=== PATIENT | male | born 1960 | race Caucasian/White ===

== ENCOUNTER 2020-08-23 14:41 | Outpatient (CLI) | payer BC, SELFPAY ==
--- NOTE | ~2020-08-23 | XR_ITS ---
EXAMINATION: XR chest 2V EXAM DATE: 08/23/2020 14:57 INDICATION: R05 - Cough . TECHNIQUE: Frontal and lateral projections of the chest obtained and reviewed. Comparison is made to prior examination from 07/13/2016. FINDINGS: Small linear basilar regions of scarring. The lungs are otherwise clear. There are no ple ural effusions. The cardiomediastinal silhouette is within normal limits. There is no pneumothorax suspected. The bones and soft tissues are unremarkable. IMPRESSION: Small linear basilar regions of scarring. Reviewed, dictated and finalized at location B. [facility]
[2020-08-23 15:10] LABS: Basophils Percent Auto 0.7 % (0.2-1.2); Eosinophils Absolute Auto 0.1 K/mm3 (0-0.3); Eosinophils Percent Auto 1.7 % (0-4.4); Hematocrit 41.3 % (42.0-52.0); Hemoglobin 13.5 g/dL (14.0-18.0); Immature Granulocyte Absolute 0.03 K/mm3 (0.00-0.031); Immature Granulocyte Percent A 0.6 % (0-0.5); Lymphocytes Absolute Auto 1.09 K/mm3 (0.9-3.2); Lymphocytes Percent Auto 20.4 % (18.3-44.2); Mean Corpuscular HGB Conc 32.7 g/dl (32-36); Mean Corpuscular Volume 88.6 fl (80-100); Mean Platelet Volume 9.7 fl (7.4-10.4); Monocytes Absolute Auto 0.4 K/mm3 (0.1-0.6); Neutrophils Absolute Auto 3.7 K/mm3 (1.3-6.7); Neutrophils Percent Auto 68.6 % (45.5-73.1); Platelet Count Result 244 k/mm3 (150-375); Red Blood Count 4.66 M/mm3 (4.6-6.20); Red Cell Distribution Width 12.7 % (11.5-14.5); White Blood Count 5.4 K/mm3 (4.5-10.0)
[2020-08-23 15:23] LABS: Anion Gap 6 mmol/L (8-16); Blood Urea Nitrogen 15 mg/dL (9-20); Calcium 8.7 mg/dL (8.4-10.2); Carbon Dioxide 30 mmol/L (22-30); Chloride 105 mmol/L (98-107); Estimated Glomerular Filt Rate > 60; Glucose 100 mg/dL (75-110); Magnesium 1.7 mg/dL (1.6-2.3); Potassium 4.3 mmol/L (3.4-5.0); Sodium 141 mmol/L (137-145)
[2020-08-23 15:32] LABS: NT Pro B Type Natriuretic Pept 77 PG/ML (5-100)
== END 2020-08-23 14:42 | disposition home or self-care (01) ==
PROVIDERS: PCP Family Medicine; Visit Provider Nurse Practitioner Family
DX: M62.838 Other muscle spasm (principal); R05 Cough; R06.02 Shortness of breath; R91.8 Other nonspecific abnormal finding of lung field
CPT/HCPCS: 36415; 71046; 80048; 83735; 83880; 85025

== ENCOUNTER 2021-01-08 18:00 | Outpatient (RCR) | payer BC, SELFPAY ==
[2020-10-04 08:40] VITALS: PULSE 78
--- NOTE | 2020-11-11 14:07 | PCCPR ---
Absent-has to work overtime.
== END 2021-01-08 19:30 | disposition home or self-care (01) ==
LOC: ANHCPREHAB 18:00
PROVIDERS: PCP Family Medicine; Visit Provider Internal Medicine Cardiovascular Disease
DX: Z95.5 Presence of coronary angioplasty implant and graft (principal)
CPT/HCPCS: 93798

== ENCOUNTER 2022-04-20 01:24 | Day surgery (SDC) | payer BC, SELFPAY ==
[2022-03-20 14:42] VITALS: BMI 28.5
--- NOTE | 2022-04-20 06:49 | PM.HPGS ---
History of Present Illness History of Present Illness Consent: Risks, benefits, and alternatives have been discussed and questions answered. Patient agrees to proceed with procedure. Chief complaint: neoplasm screening Narrative: Wesley Rivera is a 61 year old male Referred for colon cancer screening. Review of Systems Review of Systems: All systems reviewed & are unremarkable except as noted in HPI and below PMFSH Past Medical History Medical History Bilateral shoulder pain BMI 28.0-28.9,adult BMI 29.0-29.9,adult CAD (coronary artery disease) Combined arterial insufficiency and corporo-venous occlusive erectile dysfunction Cough Dietary counseling and surveillance (08/14/15) Encounter for screening for lipoid disorders Encounter for screening for malignant neoplasm of prostate Encounter for screening for other suspected endocrine disorder Flu vaccine need Herpes zoster without complication Hypertension Low testosterone Mixed hyperlipidemia Muscle weakness Myalgia Numbness Pain in unspecified knee Pain in unspecified shoulder Pre-op exam Sprain of medial collateral ligament of right knee, subsequent encounter Superficial foreign body of scalp, sequela Surgical History Surgical History H/O knee surgery H/O shoulder surgery Stented coronary artery Family History Family History Father Hypertension Family history of liver disease Mother Heart disease History of quadruple bypass Sibling Breast cancer Social History Social History Smoking status: Former smoker Second hand tobacco smoke exposure: Yes Alcohol intake: never Substance use: never Substance use type: does not use Living arrangements: with family 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[employer] Gender identity (if verbalized by the patient): Male Spiritual care concerns: No Meds Home Medications and Allergies Home Medications Medication Instructions Recorded Confirmed Type clopidogrel 75 mg tablet 75 mg PO DAILY 09/30/20 04/20/22 History aspirin 81 mg tablet 81 mg PO DAILY 10/04/20 04/20/22 History evolocumab 140 mg/mL subcutaneous 140 mg subcut [id number] 12/23/20 04/20/22 History pen injector (Sina Santos) Allergies Allergy/AdvReac Type Severity Reaction Status Date / Time Uswitdv-PRS-HhU Reductase AdvReac Severe Nightmare Verified 04/20/22 09:07 Inhibitor [Kaoognw-Pvs-Lnc Reductase Inhibitor] Exam Const: General: alert Orientation/consciousness: patient oriented x3 Resp: Auscultation: clear to auscultation bilaterally Cardio: Rhythm: regular rhythm GI: GI Palp: Yes Soft to palpation and No Tenderness to palpation present (GI) Neuro: General: patient oriented x3 Assessment and Plan Assessment and plan (1) Screening for malignant neoplasm of colon: Code(s): Z12.11 - Encounter for screening for malignant neoplasm of colon Status: Acute Assessment and Plan: Colonoscopy with possible biopsy or polypectomy or cautery or injection of substances.
--- NOTE | 2022-04-20 07:50 | WPDANESEPPF ---
Anes - Initial Pre Proc Eval Procedure: Operation Date: 04/20/22 10:00 Proposed Procedures p Screening Colonoscopy - Adrian Kinsey MD Date/Time: 04/20/22 07:50 Surgeon: Adrian Kinsey MD Pre Op Diagnosis: neoplasm screening Patient Data Age: 61 Gender: M Height: 1.83 m Weight: 95.5 kg Allergies Allergy/AdvReac Type Severity Reaction Status Date / Time Mevcyih-TCR-OkX Reductase AdvReac Severe Nightmare Verified 04/20/22 09:07 Inhibitor [Jqqwiph-Whn-Ivd Reductase Inhibitor] Home Medications Medication Instructions Recorded Confirmed Type clopidogrel 75 mg tablet 75 mg PO DAILY 09/30/20 04/20/22 History aspirin 81 mg tablet 81 mg PO DAILY 10/04/20 04/20/22 History evolocumab 140 mg/mL subcutaneous 140 mg subcut [id number] 12/23/20 04/20/22 History pen injector (Repatha SureClick) Patient hx anesthesia problems: none Family hx anesthesia problems: none Results Review: All pre-operative results and documents have been reviewed as part of the pre-operative evaluation. [facility] Past Medical History Medical History Bilateral shoulder pain BMI 28.0-28.9,adult BMI 29.0-29.9,adult CAD (coronary artery disease) Combined arterial insufficiency and corporo-venous occlusive erectile dysfunction Cough Dietary counseling and surveillance (08/14/15) Encounter for screening for lipoid disorders Encounter for screening for malignant neoplasm of prostate Encounter for screening for other suspected endocrine disorder Flu vaccine need Herpes zoster without complication Hypertension Low testosterone Mixed hyperlipidemia Muscle weakness Myalgia Numbness Pain in unspecified knee Pain in unspecified shoulder Pre-op exam Sprain of medial collateral ligament of right knee, subsequent encounter Superficial foreign body of scalp, sequela Surgical History Surgical History H/O knee surgery H/O shoulder surgery Stented coronary artery Family History Family History Father Hypertension Family history of liver disease Mother Heart disease History of quadruple bypass Sibling Breast cancer Social History Social History Smoking status: Former smoker Second hand tobacco smoke exposure: Yes Alcohol intake: never Substance use: never Substance use type: does not use Living arrangements: with family Additional occupation/education comments: [employer] Gender identity (if verbalized by the patient): Male Spiritual care concerns: No Anes - Eval Final PreProcedure Day of Procedure 04/20/22 07:50 Patient weight: overweight Heart: regular rate and rhythm Lungs: clear to auscultation Airway: Mallampati scale class II Neurological: alert and oriented Last oral intake: >/= 8 hours ASA classification: III Emergent: no Anesthetic plan: proceed Anesthesia type and monitoring: general GIVS and standard monitoring Results Review: All pre-operative results and documents have been reviewed as part of the pre-operative evaluation. Informed Consent: The patient's anesthetic plan and its attendant risks and benefits were discussed with the patient/family/POA. Questions were solicited and answers provided to the satisfaction of the patient/family/POA.
[2022-04-20 09:09] VITALS: BP 114/76; PULSE 103; RESP 17; TEMP 36.6; O2SAT 98; BMI 28.4
[2022-04-20] MEDS: LACTATED RINGERS 1,000 ML 150 ML IV CONT (09:22)
[2022-04-20 10:21] VITALS: BP 98/63; PULSE 90; RESP 17; O2SAT 97
[2022-04-20 10:31] VITALS: BP 98/61; PULSE 80; RESP 17; O2SAT 99
[2022-04-20 10:37] VITALS: BP 100/54; PULSE 76; RESP 17; O2SAT 99
== END 2022-04-20 10:52 | disposition home or self-care (01) ==
PROVIDERS: PCP Family Medicine; Visit Provider Internal Medicine Gastroenterology
PROC: 0DJD8ZZ Inspection of Lower Intestinal Tract, Via Natural or Artificial Opening Endoscopic (ICD-10-PCS; CPT 45378; principal; 2022-04-20 10:00)
DX: Z12.11 Encounter for screening for malignant neoplasm of colon (principal); D12.5 Benign neoplasm of sigmoid colon; K63.5 Polyp of colon; Z79.82 Long term (current) use of aspirin; I25.10 Atherosclerotic heart disease of native coronary artery without angina pectoris; I10 Essential (primary) hypertension; E78.2 Mixed hyperlipidemia; M62.81 Muscle weakness (generalized); Z87.891 Personal history of nicotine dependence
CPT/HCPCS: 45378; 88305; J2704; J7120

== ENCOUNTER 2022-11-03 09:56 | Outpatient (CLI) | payer BC, SELFPAY ==
--- NOTE | 2022-11-03 10:54 | ECG_ITS ---
Measurements Intervals [place] Rate: 68 P: 67 MN: 188 QRS: 31 QRSD: 78 T: 57 QT: 390 QTc: 415 Interpretive Statements SINUS RHYTHM TRANSIENT ECTOPIC ATRIAL COMPLEXES BASELINE ARTIFACT- I, III, AVR, AVL, AVF, V1, V6 BORDERLINE ECG NO PREVIOUS ECG AVAILABLE FOR COMPARISON Electronically Signed On 11-03-2022 11:36:00 CDT by Fer Perez D.O.
[2022-11-03 11:18] LABS: Basophils Absolute Auto 0.1 K/mm3 (0.0-0.1); Basophils Percent Auto 0.8 % (0.2-1.2); Eosinophils Absolute Auto 0.1 K/mm3 (0-0.3); Eosinophils Percent Auto 2.2 % (0-4.4); Hematocrit 46.2 % (42.0-52.0); Immature Granulocyte Absolute 0.03 K/mm3 (0.00-0.031); Immature Granulocyte Percent A 0.5 % (0-0.5); Lymphocytes Absolute Auto 1.26 K/mm3 (0.9-3.2); Lymphocytes Percent Auto 19.4 % (18.3-44.2); Mean Corpuscular HGB Conc 32.5 g/dl (32-36); Mean Corpuscular Hemoglobin 28.5 pg (26-34); Mean Corpuscular Volume 87.8 fl (80-100); Mean Platelet Volume 9.5 fl (7.4-10.4); Monocytes Absolute Auto 0.5 K/mm3 (0.1-0.6); Neutrophils Absolute Auto 4.5 K/mm3 (1.3-6.7); Neutrophils Percent Auto 69.1 % (45.5-73.1); Platelet Count Result 249 k/mm3 (150-375); Red Blood Count 5.26 M/mm3 (4.6-6.20); Red Cell Distribution Width 12.7 % (11.5-14.5); White Blood Count 6.5 K/mm3 (4.5-10.0)
[2022-11-03 11:29] LABS: Alanine Aminotransferase 28 U/L (6-50); Albumin Level 4.4 g/dL (3.5-5.1); Alkaline Phosphatase 82 U/L (38-126); Anion Gap 4 mmol/L (8-16); Aspartate Amino Transferase 29 U/L (17-59); Bilirubin,Total 0.4 mg/dL (0.2-1.3); Blood Urea Nitrogen 17 mg/dL (9-20); Calcium 9.3 mg/dL (8.4-10.2); Carbon Dioxide 33 mmol/L (22-30); Chloride 102 mmol/L (98-107); Estimated Glomerular Filt Rate > 60; Glucose 95 mg/dL (65-110); Potassium 4.7 mmol/L (3.4-5.0); Sodium 139 mmol/L (137-145)
[2022-11-03 11:32] LABS: Prothrombin Time 12.5 Seconds (11.1-14.7)
[2022-11-03 11:33] LABS: Partial Thromboplastin Time 31.9 SECONDS (22.3-36.8)
== END 2022-11-03 09:57 | disposition home or self-care (01) ==
LOC: ANHSURGERY 10:01
PROVIDERS: PCP Family Medicine; Visit Provider Urology
DX: C61 Malignant neoplasm of prostate (principal); I25.10 Atherosclerotic heart disease of native coronary artery without angina pectoris; Z01.818 Encounter for other preprocedural examination
CPT/HCPCS: 36415; 80053; 85025; 85610; 85730; 86850; 86900; 86901; 87086; 93005

== ENCOUNTER 2022-11-10 00:39 | Day surgery (SDC) | payer BC, SELFPAY ==
--- NOTE | 2022-11-03 09:47 | PC.NURSE ---
PRE-OP INSTRUCTIONS, PLEASE READ CAREFULLY Report to the Outpatient Waiting Room, entrance under the green pavilion located off [facility], at time _0600_ on date _11/10/22_. Planned Procedure Time: _0730_. PACK A SMALL OVERNIGHT BAG AND LEAVE IT IN THE CAR Time changes happen often and if your time is changed the preop area will call you the afternoon before. - You and your visitor will be asked to self-screen and do not enter if you have any COVID symptoms. - Only one visitor is requested with a max of two and NO children visitors are allowed at this time. - The patient visitor may be requested to leave or wait in car when not with patient due to distancing restrictions. - A mask is optional within the hospital at this time. -VISITING HOURS 8AM-8PM Patients may have clear liquids (water, carbonated beverages, clear teas, apple juice) until 3 hours prior to surgery (0430 AM) with a maximum of 20 ounces. - No food from midnight until time of surgery Take the following medications with a SIP of water the morning of surgery: _NONE_ DO NOT STOP ANY OF YOUR OTHER PRESCRIPTION MEDICATIONS PRIOR TO SURGERY ?EXCEPT THE FOLLOWING Medications to discontinue per DR. CLARKE - _ ASPIRIN 7 DAYS PRIOR TO SURGERY_, Date to take last dose 12/03/22 - CALL OFFICE [phone] FOR CONFIRMATION_ Please no make-up, nail [place], hairspray, perfume, deodorant, or body powder the day of surgery. No jewelry (including any body piercings) or valuables the day of surgery, leave them at home. Please take a shower or bath the night before, or the morning of, surgery with an antibacterial soap. Wear comfortable, loose fitting clothing. - Jewelry must be removed prior to entering the operating room. Rings and piercings that are not removed may be cut off. - The hospital will not accept responsibility for valuables. - Please leave all valuables, including medications, at home the day of surgery. If you are going home after surgery, a licensed cement mixer driver must drive you home. - NO public transportation without another adult if you receive anesthesia. - We recommend that an adult stay with you for 24 hours following discharge. - We also recommend that you do not drive, make important decision, drink alcoholic beverages, or take any drugs that were not prescribed by your health care provider for at least 24 hours after your discharge time. Follow any additional instructions given to you from DR. SANCHEZ. - DIET, BOWEL PREP If you or anyone in your household have experienced Covid symptoms in the past week, please notify your surgeon or the nurse liaison at the phone number below for possible testing. Instructions given to _PATIENT_and asked if any additional questions and then verbalized understanding. Patient advised to call surgeon office or pre surgery nurse liaison [phone] if any additional questions.
[2022-11-03 10:21] VITALS: BP 136/70; PULSE 66; RESP 20; TEMP 36.7; O2SAT 98; BMI 30.1
[2022-11-10] VITALS (12 sets, daily range): BP systolic 98–162; BP diastolic 57–81; PULSE 63–90; RESP 12–20; TEMP 36–37.1; O2SAT 93–99; BMI 29.2
[2022-11-10] MEDS: LACTATED RINGERS 1,000 ML 30 ML IV CONT (06:30)
--- NOTE | 2022-11-10 07:10 | WPDANESEPPF ---
Anes - Initial Pre Proc Eval Procedure: Operation Date: 11/10/22 07:30 Proposed Procedures p Robotic Assisted Nerve Sparing Prostatectomy with Possible Pelvic Lymph Node Dissection - Jacobo Conteh MD Date/Time: 11/10/22 07:10 Surgeon: Jacobo Conteh MD Pre Op Diagnosis: Prostate Ca Patient Data Age: 62 Gender: M Height: 1.83 m Weight: 97.8 kg Last Vital Signs Temp 97.2 F L 11/10/22 06:06 Pulse 83 11/10/22 06:06 Resp 18 11/10/22 06:06 BP 127/76 11/10/22 06:06 Pulse Ox 98 11/10/22 06:06 O2 Del Method Room Air 11/10/22 06:06 Allergies Allergy/AdvReac Type Severity Reaction Status Date / Time Uhmmfxg-DIG-HhQ Reductase AdvReac Severe Nightmare Verified 11/10/22 07:00 Inhibitor [Rxjjylt-Maz-Ycn Reductase Inhibitor] Home Medications Medication Instructions Recorded Confirmed Type aspirin 81 mg tablet 81 mg PO HS 10/04/20 11/10/22 History alirocumab 75 mg/mL subcutaneous See Rx Instructions .Route .COMPLEX 11/03/22 11/10/22 History pen injector (Praluent Pen) Patient hx anesthesia problems: none Family hx anesthesia problems: none Results Review: All pre-operative results and documents have been reviewed as part of the pre-operative evaluation. [facility] Past Medical History Medical History Bilateral shoulder pain BMI 28.0-28.9,adult BMI 29.0-29.9,adult CAD (coronary artery disease) Combined arterial insufficiency and corporo-venous occlusive erectile dysfunction Cough Dietary counseling and surveillance (08/14/15) Encounter for screening for lipoid disorders Encounter for screening for malignant neoplasm of prostate Encounter for screening for other suspected endocrine disorder Flu vaccine need Herpes zoster without complication Hypertension Low testosterone Mixed hyperlipidemia Muscle weakness Myalgia Numbness Pain in unspecified knee Pain in unspecified shoulder Pre-op exam Sprain of medial collateral ligament of right knee, subsequent encounter Superficial foreign body of scalp, sequela Surgical History Surgical History H/O knee surgery H/O shoulder surgery Stented coronary artery Family History Family History Father Hypertension Family history of liver disease Mother Heart disease History of quadruple bypass Sibling Breast cancer Social History Social History Smoking status: Never smoker Second hand tobacco smoke exposure: Yes ( A CHILD) Alcohol intake: never Substance use: never Substance use type: does not use Living arrangements: with family Occupation/Education: occupation Additional occupation/education comments: [employer] Gender identity (if verbalized by the patient): Male Spiritual care concerns: No Anes - Eval Final PreProcedure Day of Procedure 11/10/22 07:10 Patient weight: normal Heart: regular rate and rhythm Lungs: clear to auscultation Neurological: alert and oriented Last oral intake: >/= 8 hours ASA classification: III Emergent: no Anesthetic plan: proceed Anesthesia type and monitoring: general ETT and standard monitoring Results Review: All pre-operative results and documents have been reviewed as part of the pre-operative evaluation. Informed Consent: The patient's anesthetic plan and its attendant risks and benefits were discussed with the patient/family/POA. Questions were solicited and answers provided to the satisfaction of the patient/family/POA.
--- NOTE | 2022-11-10 07:13 | WPDHPUPDATE1 ---
History and Physical Update Update Date/Time: 11/10/22 07:13 History and Physical has been reviewed, including an updated exam of the patient. There are NO changes in the patient's condition. Risks, benefits, and alternatives have been discussed and questions answered. Patient agrees to proceed with procedure.
[2022-11-10] MEDS: ceFAZolin 2 GM/D5W 50 ML 2 GM/50 ML BAG IVPB (07:22)
[2022-11-10] MEDS: BUPivacaine HCL 0.5% PF 30 ML VIAL INFILTRATE (08:36)
--- NOTE | 2022-11-10 11:47 | P.OP_ITS ---
Procedure Note - Detailed Date of Procedure 11/10/22 Pre-op Diagnosis Prostate Ca Post-op Diagnosis Same Procedure Performed Robotic assisted nerve-sparing prostatectomy with right pelvic lymphadenectomy Surgeon Jacobo Conteh MD Anesthesia General Description of Procedure Patient was taken to the operative suite correctly identified. Once anesthesia was obtained was placed in dorsal lithotomy position and prepped draped usual sterile fashion. All points were padded. Sixteen Taiwanese Bello was placed inflated with 15 cc normal saline. Supraumbilical incision was then made carried down to the rectus fascia. Veress needle was inserted and the abdomen insufflated to 15 mmHg pressure. Camera trocar was then placed under direct vision. All trocars were placed in appropriate locations under direct vision. Patient was placed in steep Trendelenburg and the robot was docked. Patient had some adhesions along the left cul-de-sac which were taken down. A posterior approach was then performed. Seminal vesicles were dissected down their entirety the vas were transected. Plane between the prostate and rectum was developed. We then took down the bladder in the standard fashion. Space of Retzius was developed bilaterally. Puboprostatic were taken down. Dorsal venous complex was isolated using 0 Vicryl and secured to the pubic bone. Anterior bladder neck was then opened. Posterior bladder neck was also incised. The opening was a little bit larger than I would have liked and thus I r econstructed using 3-0 Vicryl in interrupted fashion laterally. The posterior denied VA is was incised. Seminal vacs locals which were dissected out earlier were visualized. Bilateral nerve-sparing was performed all the we went wider on the right side due to his cancer. Pedicles were clipped. Dorsal venous complex was then transected. The urethra was also transected. He had a nice urethral stump. Right pelvic lymphadenectomy was then performed with the boundaries being the external iliac vein, obturator nerve, Justin's ligament, and bifurcation of the vessels. Clips were placed proximally and distally. The specimen along with the prostate had been placed in the Endo-Catch bag. I then placed a Matt suture. The urethra was then anastomosed to the bladder neck using AV lock suture in a running fashion. There was good approximation of the mucosa was. 16 Taiwanese Bello was placed and inflated with 10 cc of sterile water. The bladder was filled with 180 cc of normal saline. There was no evidence of extravasation. Fall lap count needle count sponge counts were correct. The robot was undocked and the specimen was brought out through the midline incision. Rectus fascia was closed using 0 Vicryl running fashion. Subcuticular stitches were then placed. A DAV drain was placed in the 4th port site and secured. Patient tolerated procedure well without any complications wa s taken recovery stable condition. Please send a copy this op note to my office Estimated Blood Loss 100 Drains Yes Packing No Pathology Yes Complications No immediate complications Condition Stable Disposition PACU
[2022-11-10] MEDS: fentaNYL CITRATE INJ (*CRX) 100 MCG/2 ML VIAL 25 MCG IV PUSH ×6 (12:45→13:09)
[2022-11-10] MEDS: LACTATED RINGERS 1,000 ML 125 ML IV CONT ×2 (13:48→20:17)
[2022-11-10] MEDS: ONDANSETRON INJ 4 MG/2 ML VIAL IV PUSH (13:48)
--- NOTE | 2022-11-10 13:57 | ADMGEN ---
This patient, Wesley Rivera, was admitted to 3 [facility] Surg Room 319-01. Patient/family oriented to hospital policies and general routines including ID bracelet, bed and alarms, visiting hours, pain management, procedures, bathroom and other care routines, personal items, smoking policy, room service/diet, and visiting hours. Information on how to activate the Rapid Response Team has been discussed. Patient/Family are encouraged to report perceived risks to care and to ask questions if they do not understand what they are told or what they should do.
[2022-11-10] MEDS: DOCUSATE SODIUM 100 MG CAPSULE PO (16:53)
[2022-11-10 17:21] LABS: Glucose Point of Care 96 mg/dl (65-105)
[2022-11-10] MEDS: HYDROcodone/acetaminophen (*CRX) 5-325 MG TABLET 1 TAB PO (20:16)
[2022-11-11 02:59] VITALS: BP 133/72; PULSE 69; RESP 16; TEMP 35.9; O2SAT 97
[2022-11-11] MEDS: LACTATED RINGERS 1,000 ML 125 ML IV CONT (06:15)
[2022-11-11 06:54] LABS: Hematocrit 38.7 % (42.0-52.0); Hemoglobin 12.5 g/dL (14.0-18.0)
[2022-11-11 06:57] VITALS: BP 140/73; PULSE 73; RESP 18; TEMP 36.2; O2SAT 94
[2022-11-11 07:12] LABS: Anion Gap 0 mmol/L (8-16); Blood Urea Nitrogen 13 mg/dL (9-20); Calcium 8.1 mg/dL (8.4-10.2); Carbon Dioxide 33 mmol/L (22-30); Chloride 103 mmol/L (98-107); Estimated CRCL calculation 81 ml/min; Estimated Glomerular Filt Rate > 60; Glucose 94 mg/dL (65-110); Potassium 4.7 mmol/L (3.4-5.0); Sodium 136 mmol/L (137-145)
--- NOTE | 2022-11-11 07:53 | WPDANESPN ---
Anes - Prog Note Post-Op Date/Time: 11/11/22 07:53 Cardiovascular status: normal Respiratory status: normal Airway patency: baseline Mental status: baseline Post-Op hydration status: normal Vital Signs: Last Vital Signs Temp 36.2 C L 11/11/22 06:57 Pulse 73 11/11/22 06:57 Resp 18 11/11/22 06:57 BP 140/73 11/11/22 06:57 Pulse Ox 94 11/11/22 06:57 O2 Del Method Room Air 11/10/22 20:00 O2 Flow Rate 2 11/10/22 13:13 Pain Score (VAS): 1 I/O: Intake & Output 11/10/22 11/10/22 11/11/22 15:59 23:59 07:59 Intake Total 100 1720 1475 Output Total 40 285 1610 Balance 60 1435 -135 Laboratory Tests 11/11/22 06:39 11/11/22 06:39 11/10/22 11/11/22 11/11/22 17:09 06:39 06:39 Hgb 12.5 L Hct 38.7 L Sodium 136 L Potassium 4.7 Chloride 103 Carbon Dioxide 33 H Anion Gap 0 L BUN 13 Creatinine 0.90 Estim Creat Clear Calc 81 Estimated GFR > 60 Glucose 94 POC Capillary Glucose 96 Calcium 8.1 L Post-procedural complaints: none Patient Feedback: Patient satisfied with anesthetic care.
[2022-11-11] MEDS: HYDROcodone/acetaminophen (*CRX) 5-325 MG TABLET 1 TAB PO ×2 (09:39→15:30)
[2022-11-11] MEDS: DOCUSATE SODIUM 100 MG CAPSULE PO (09:39)
[2022-11-11 10:59] VITALS: BP 138/70; PULSE 71; RESP 18; TEMP 36.3; O2SAT 95
[2022-11-11] MEDS: levoFLOXacin 500 MG TABLET PO (11:39)
--- NOTE | 2022-11-11 12:55 | WPDUROPN2 ---
Progress Note: A&P Assessment and Plan (1) Prostate cancer: Code(s): C61 - Malignant neoplasm of prostate Status: Acute Assessment and Plan: Ok to discharge home today. Subjective Subjective Date/Time Seen: 11/11/22 12:55 POD#1 Robotic Assisted Nerve Sparing Prostatectomy with Right Pelvic Lymphadenectomy. Patient is tolerating diet, activity and pain well. His DAV drain is putting out minimal drainage. Post Op day: 1 Review of Systems Cardiovascular: Cardiovascular: Denies chest pain Respiratory: Respiratory: Reports no additional respiratory complaints Genitourinary: Genitourinary: Denies hematuria and Denies flank pain Exam Const: General: cooperative and comfortable Resp: Effort & Inspection: normal respiratory effort Cardio: Rate: regular rate GI: GI Palp: Yes Soft to palpation and No Tenderness to palpation present (GI) : General: Yes no CVA tenderness Urinary Catheter: Urinary Catheter: patent and draining and urine clear Extrem: Right lower extremity: no edema Left lower extremity: no edema Objective Data Vital Signs Vital Signs: Vital Signs - 24 hr 11/10/22 13:00 11/10/22 13:13 11/10/22 13:50 Temperature 97.1 F L Pulse Rate 63 79 86 Respiratory Rate 12 17 16 Blood Pressure 151/63 H 158/70 H 141/69 H Pulse Oximetry 97 98 93 Oxygen Delivery Nasal Cannula Nasal Cannula Oxygen Flow Rate 2 2 11/10/22 14:05 11/10/22 14:35 11/10/22 15:35 Temperature 97.4 F L 97.9 F 97.4 F L Pulse Rate 90 70 68 Respiratory Rate 18 16 18 Blood Pressure 136/57 L 126/58 L 139/69 Pulse Oximetry 96 95 97 Oxygen Delivery Oxygen Flow Rate 11/10/22 18:59 11/10/22 20:00 11/10/22 22:25 Temperature 97.4 F L 96.8 F L Pulse Rate 84 70 Respiratory Rate 16 18 Blood Pressure 131/71 98/81 L Pulse Oximetry 98 96 Oxygen Delivery Room Air Oxygen Flow Rate 11/11/22 02:59 11/11/22 06:57 Temperature 96.6 F L 97.1 F L Pulse Rate 69 73 Respiratory Rate 16 18 Blood Pressure 133/72 140/73 Pulse Oximetry 97 94 Oxygen Delivery Oxygen Flow Rate Intake/Output Intake/Output: Intake & Output 11/08/22 11/09/22 11/10/22 11/11/22 23:59 23:59 23:59 23:59 Intake Total 1820 1925 Output Total 325 1610 Balance 1495 315 Meds/Results Medications: Active Medications Generic Name Dose Route Start Last Admin Trade Name Freq PRN Reason Stop Dose Admin Hydrocodone Bitart/Acetaminophen 1 tab 11/10/22 13:14 11/11/22 09:39 Hydrocodone/Acetaminophen (*Crx) 5-325 Mg Tablet PO 1 tab Q6H PRN Administration Pain Rated 1-3 Hydrocodone Bitart/Acetaminophen 2 tab 11/10/22 13:14 Hydrocodone/Acetaminophen (*Crx) 5-325 Mg Tablet PO Q6H PRN Pain Rated 4-6 Docusate Sodium 100 mg 11/10/22 17:00 11/11/22 09:39 Docusate Sodium 100 Mg Capsule PO 100 mg BID LEONELA Administration Hyoscyamine 0.125 mg 11/10/22 13:14 Hyoscyamine Sulfate 0.125 Mg Tablet SUBLINGUAL Q4H PRN Bladder Spasm Lactated Ringer's 1,000 mls @ 125 mls/hr 11/10/22 13:14 11/11/22 06:15 Lr - Lactated Ringers Iv IV CONT 125 mls/hr .Q8H LEONELA Administration Acetaminophen 1,000 mg in 100 mls @ 400 mls/hr 11/10/22 18:00 11/11/22 11:59 Ofirmev 1,000 Mg Ivpb IVPB 11/11/22 17:59 400 mls/hr Q6HR LEONELA Administration Ketorolac Tromethamine 30 mg 11/10/22 13:14 Ketorolac 30 Mg/Ml Vial (*Bkc) IV PUSH 11/11/22 13:13 Q6H PRN Pain Rated 4-6 Levofloxacin 500 mg 11/11/22 09:00 11/11/22 11:39 Levofloxacin 500 Mg Tablet PO 500 mg DAILY LEONELA Administration Morphine Sulfate 1 mg 11/10/22 13:14 Morphine Sulfate (*Crx) 2 Mg/Ml Inj IV PUSH Q2H PRN Pain Rated 7-10 Naloxone HCl 0.1 mg 11/10/22 13:14 Naloxone Hcl 0.4 Mg/Ml Vial IV PUSH Q2M PRN Opiate Reversal Ondansetron HCl 4 mg 11/10/22 13:14 11/10/22 13:48 Ondansetron Inj 4 Mg/2 Ml Vial IV PUSH 4 mg Q6H PRN Administration Nausea A
[2022-11-11 14:59] VITALS: BP 144/67; PULSE 87; RESP 18; TEMP 36.7; O2SAT 97
--- NOTE | 2022-11-11 16:32 | PM.IMPN ---
Subjective Date/time seen: 11/11/22 16:32 0 Objective Data Vital Signs Vital Signs: Vital Signs - 24 hr 11/10/22 18:59 11/10/22 20:00 11/10/22 22:25 Temperature 97.4 F L 96.8 F L Pulse Rate 84 70 Respiratory Rate 16 18 Blood Pressure 131/71 98/81 L Pulse Oximetry 98 96 Oxygen Delivery Room Air 11/11/22 02:59 11/11/22 06:57 11/11/22 10:59 Temperature 96.6 F L 97.1 F L 97.4 F L Pulse Rate 69 73 71 Respiratory Rate 16 18 18 Blood Pressure 133/72 140/73 138/70 Pulse Oximetry 97 94 95 Oxygen Delivery 11/11/22 14:59 Temperature 98.1 F Pulse Rate 87 Respiratory Rate 18 Blood Pressure 144/67 H Pulse Oximetry 97 Oxygen Delivery Intake/Output Intake/Output: Intake & Output 11/08/22 11/09/22 11/10/22 11/11/22 23:59 23:59 23:59 23:59 Intake Total 1820 2325 Output Total 325 1610 Balance 1495 715 Meds/Results Medications: Active Medications Generic Name Dose Route Start Last Admin Trade Name Freq PRN Reason Stop Dose Admin Hydrocodone Bitart/Acetaminophen 1 tab 11/10/22 13:14 11/11/22 15:30 Hydrocodone/Acetaminophen (*Crx) 5-325 Mg Tablet PO 1 tab Q6H PRN Administration Pain Rated 1-3 Hydrocodone Bitart/Acetaminophen 2 tab 11/10/22 13:14 Hydrocodone/Acetaminophen (*Crx) 5-325 Mg Tablet PO Q6H PRN Pain Rated 4-6 Docusate Sodium 100 mg 11/10/22 17:00 11/11/22 09:39 Docusate Sodium 100 Mg Capsule PO 100 mg BID LEONELA Administration Hyoscyamine 0.125 mg 11/10/22 13:14 Hyoscyamine Sulfate 0.125 Mg Tablet SUBLINGUAL Q4H PRN Bladder Spasm Lactated Ringer's 1,000 mls @ 125 mls/hr 11/10/22 13:14 11/11/22 06:15 Lr - Lactated Ringers Iv IV CONT 125 mls/hr .Q8H LEONELA Administration Acetaminophen 1,000 mg in 100 mls @ 400 mls/hr 11/10/22 18:00 04/05/23 11:59 Ofirmev 1,000 Mg Ivpb IVPB 11/11/22 17:59 400 mls/hr Q6HR LEONELA Administration Levofloxacin 500 mg 11/11/22 09:00 11/11/22 11:39 Levofloxacin 500 Mg Tablet PO 500 mg DAILY LEONELA Administration Morphine Sulfate 1 mg 11/10/22 13:14 Morphine Sulfate (*Crx) 2 Mg/Ml Inj IV PUSH Q2H PRN Pain Rated 7-10 Naloxone HCl 0.1 mg 11/10/22 13:14 Naloxone Hcl 0.4 Mg/Ml Vial IV PUSH Q2M PRN Opiate Reversal Ondansetron HCl 4 mg 11/10/22 13:14 11/10/22 13:48 Ondansetron Inj 4 Mg/2 Ml Vial IV PUSH 4 mg Q6H PRN Administration Nausea And Vomiting Labs Labs: Laboratory Results - last 24 hr 11/10/22 11/11/22 11/11/22 17:09 06:39 06:39 Hgb 12.5 L Hct 38.7 L Sodium 136 L Potassium 4.7 Chloride 103 Carbon Dioxide 33 H Anion Gap 0 L BUN 13 Creatinine 0.90 Estim Creat Clear Calc 81 Estimated GFR > 60 Glucose 94 POC Capillary Glucose 96 Calcium 8.1 L
== END 2022-11-11 16:33 | disposition home or self-care (01) ==
LOC: ANHSURGERY 05:57 → ANH3MEDSUR 13:26
PROVIDERS: PCP Family Medicine; Visit Provider Urology
PROC: 0VT04ZZ Resection of Prostate, Percutaneous Endoscopic Approach (ICD-10-PCS; CPT 55867; principal; 2022-11-10 07:30)
DX: C61 Malignant neoplasm of prostate (principal); I25.10 Atherosclerotic heart disease of native coronary artery without angina pectoris; I10 Essential (primary) hypertension; E78.2 Mixed hyperlipidemia; Z79.82 Long term (current) use of aspirin; Z95.5 Presence of coronary angioplasty implant and graft; Z79.899 Other long term (current) drug therapy
CPT/HCPCS: 55866; 38571; S2900; 36415; 80048; 80053; 82948; 85014; 85018; 85025; 85610; 85730; 86850; 86900; 86901; 87086; 88309; 93005; A9270; J0131; J0690; J1100; J1170; J2405; J2704; J2710; J3010; J7030; J7120

== ENCOUNTER 2022-11-18 10:04 | Outpatient (CLI) | payer BC, SELFPAY ==
--- NOTE | ~2022-11-18 | XR_ITS ---
EXAMINATION: XR cystogram DATE: 11/18/2022 10:48 INDICATION: Prostate cancer status post prostatectomy. TECHNIQUE: Water-soluble contrast was gravity-infused through the patient's Bello catheter. Multiple fluoroscopic images were obtained. Fluoroscopy exposure time was 0.3 minutes. The total number of olivia ges was 8. COMPARISON: None. FINDINGS: There is no extraluminal leakage of contrast. No ureteral reflux. IMPRESSION: 1. Normal cystogram. Reviewed, dictated and finalized at location A. IMPRESSION: 1. Normal cystogram.
== END 2022-11-18 10:05 | disposition home or self-care (01) ==
PROVIDERS: PCP Family Medicine; Visit Provider Urology
DX: C61 Malignant neoplasm of prostate (principal)
CPT/HCPCS: 51600; 74430; Q9967